=== PATIENT | female | born 1980 | race Two or more races ===

== ENCOUNTER 2016-08-14 22:09 | Inpatient (IN) | payer MEDICAID ==
[~2016-08-14] VITALS: Ht 154.9 cm; Wt 74.3 kg
[2016-08-14 22:43] VITALS: BP 108/71; PULSE 80; RESP 18
[2016-08-14] MEDS ORDERED: PRENAT PO (22:47)
--- NOTE | 2016-08-14 23:27 | TRIAGE ---
OB Triage Datetime Report Generated by CPN: 08/14/2016 23:26 Datetime: 08/14/2016 23:12 Vaginal Exam Dilatation (cms): 0.0 Effacement (%): 0 Membrane Status: Intact Datetime: 08/14/2016 22:40 EGA: 39.2 Datetime: 08/14/2016 22:35 Heart Rate Monitor Mode: External US Comments: FHT Datetime: 08/14/2016 22:15 Time of Arrival: 08/14/2016 22:06 Arrived By: Ambulatory Arrived From: Home Chief Complaint: w/ c/o ucs. States scheduled for PC/S 08/18 due to breech presentation Movement: Present Contractions: Irregular Time Contractions Began: 08/14/2016 08:00 Rupture of Membranes: Denies Vaginal Bleeding: None Vaginal Discharge: Denies Recent Sexual Intercouse: Denies Abdominal Trauma: Not Applicable Patient Complaints: Contractions Time Provider Notified: 08/14/2016 23:30 Provider Notified: Dr Alvarez Initial Plan: JOSE ALFREDO CRUZ
--- NOTE | 2016-08-14 23:32 | RADRPT ---
PROCEDURE: OB ultrasound CLINICAL INDICATION: . OB ultrasound with evaluation of position TECHNIQUE: Transabdominal obstetrical ultrasound performed for evaluation of position. COMPARISON: None available. FINDINGS: heart rate: 124 Beats per minute. Presentation: Breech, head position is maternal left. Placenta: anterior without evidence of abruption or previa IMPRESSION: Presentation: Breech, head position is maternal left. RPTAT: AADD .Nathanael Hendrix MD, MD Date Time Electronically viewed and signed by .Nathanael Hendrix MD, on 08/14/2016 23:31 .B/
[2016-08-15] MEDS ORDERED: CEFAZOLIN 2 GM/50 ML (PMX) 50 ML IV SCH
[2016-08-15] MEDS: LACTATED RINGER'S 1,000 ML IV SCH ×4 (00:46→23:00)
[2016-08-15] MEDS ORDERED: TERBUTALINE 1 MG/ML INJ SC ONE (01:00)
[2016-08-15 01:56] LABS: ADD SCAN DIFF NO
[2016-08-15 01:57] LABS: ABNORMAL IP MESSAGE 1; BASOPHILS % 0.1 % (0.0-2.0); EOSINOPHILS # 0.1 10^3/ul (0.0-0.5); EOSINOPHILS % 1.3 % (0.0-7.0); HEMATOCRIT 30.5 % (37.0-47.0); HEMOGLOBIN 10.2 g/dl (12.0-16.0); LYMPHOCYTES # 2.6 10^3/ul (0.8-2.9); LYMPHOCYTES % 33.2 % (15.0-51.0); MEAN CORPUSCULAR HEMOGLOBIN 29.3 pg (29.0-33.0); MEAN CORPUSCULAR HGB CONC 33.4 g/dl (32.0-37.0); MEAN CORPUSCULAR VOLUME 87.6 fl (82.0-101.0); MEAN PLATELET VOLUME 13.9 fl (7.4-10.4); MONOCYTE # 0.6 10^3/ul (0.3-0.9); MONOCYTES % 7.5 % (0.0-11.0); NEUTROPHIL # 4.5 10^3/ul (1.6-7.5); NEUTROPHILS % 57.4 % (39.0-77.0); PLATELET COUNT 161 10^3/UL (140-415); RED BLOOD COUNT 3.48 10^6/ul (4.20-5.40); RED CELL DISTRIBUTION WIDTH 13.4 % (11.5-14.5); WHITE BLOOD COUNT 7.8 10^3/ul (4.8-10.8)
[2016-08-15 02:13] LABS: INR 0.91; PROTIME 12.3 Sec (12.2-14.2)
[2016-08-15 02:14] LABS: PARTIAL THROMBOPLASTIN TIME 27.1 Sec (25.0-35.0)
[2016-08-15] MEDS ORDERED: OXYTOCIN 30 UNITS/LR 500 ML IV SCH ×3 (03:30→17:45)
[2016-08-15] MEDS ORDERED: DEXTROSE 5%-LR 1,000 ML IV PRN (10:50)
[2016-08-15] MEDS ORDERED: ONDANSETRON 4 MG INJ IV STA (10:57)
[2016-08-15] MEDS ORDERED: CITRIC ACID/SODIUM CITRATE 15 ML CUP PO PRN ×2 (11:00)
[2016-08-15] MEDS ORDERED: METOCLOPRAMIDE 10 MG INJ IV ONE (11:00)
[2016-08-15] MEDS ORDERED: FENTAnyl 50 MCG/ML VIAL ONE (13:30)
[2016-08-15] MEDS ORDERED: morphine SULFATE/PF (10 MG/10 ML) INJ ONE (13:30)
[2016-08-15] MEDS ORDERED: OXYTOCIN 30 UNITS/LR 500 ML IV ONE (13:53)
[2016-08-15] MEDS ORDERED: NALOXONE (0.4 MG/ML) INJ IV PRN (15:00)
[2016-08-15] MEDS ORDERED: HYDROmorphONE 1 MG/ML SYG IV PRN ×2 (15:00)
[2016-08-15] MEDS ORDERED: KETOROLAC 30 MG INJ IV PRN (15:00)
[2016-08-15] MEDS ORDERED: ONDANSETRON 4 MG INJ IV PRN (15:00)
[2016-08-15] MEDS ORDERED: DIPHENHYDRAMINE 50 MG INJ IV PRN (15:00)
--- NOTE | 2016-08-15 16:58 | HP ---
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 Family history unremarkable Allergies denies allergy to any known medication Social habit denies smoking or drinking Review of system within normal Physical examination 5 feet 1 164 pounds total weight gain during the 26 pounds Temperature 98.1 pulse 60 respiration 20 blood pressure 130/78 Head ears nose and throat Neck supple no thyromegaly Lungs clear to P&A Heart normal sinus rhythm no murmur Abdomen fundal height 37 cm from symphysis pubis anthony breech presentation confirmed with Mahin maneuvers Pelvic examination deferred Extremities no edema no varicosities Impression Intrauterine at 39 weeks and 3 days breech presentation request for bilateral tubal ligation at the time of section. Patient has been counseled regarding the failure rate of tubal ligation increased risk of ectopic future failure to conceive also the complication of the section including but not limited to bowel and bladder injury wound infection and hematoma hemorrhage and she is willing to go ahead with this procedure Estimated Due Date: Aug 19, 2016 : 4 Para: 3 Care: Good Care Ultrasounds: Normal mid trimester US Obstetrical Complications: Gestational Diabetes Medical Complications: None Past Family/Social History * Past Medical, Surgical, Family and Obstetric Histories reviewed from chart. Rubella: immune RPR/VDRL: Negative GBS Status: Negative HBsAG: Negative OB Admission Exam Vital Signs Vital Signs Vital Signs Date Time Temp Pulse Resp B/P Pulse Ox O2 Delivery O2 Flow Rate FiO2 08/14/16 22:43 97.9 80 18 108/71 Room Air Last 72 hourBlood Glucose Bedside Glucose - 72 Hours Test 08/15/16 07:45 08/15/16 12:15 Bedside Glucose 69mg/dL (70-220) L 85mg/dL (70-220) Last 72 hours Lab Results CBC & BMP 08/14/16 00:45 08/15/16 00:45 OB Assessment/Plan Reason for admission: other (Primary due to breech presentation bilateral tubal ligation) Plan: Other (Primary due to breech presentation request for bilateral tubal ligation) MIRNA WARNER MD Aug 15, 2016 16:55
[2016-08-15] MEDS ORDERED: LACTATED RINGER'S 1,000 ML IV SCH (17:45)
[2016-08-15 18:00] VITALS: BP 119/80; PULSE 66; RESP 18
[2016-08-15] MEDS ORDERED: ACETAMINOPHEN/CODEINE #3 TAB PO PRN (18:00)
[2016-08-15] MEDS ORDERED: LANOLIN 7 GM TUBE TOP PRN (18:00)
[2016-08-15] MEDS ORDERED: MISOPROSTOL 200 MCG TAB PR PRN ×3 (18:00)
[2016-08-15] MEDS ORDERED: OXYTOCIN 30 UNITS/LR 500 ML IV PRN ×3 (18:00)
[2016-08-15] MEDS ORDERED: METHYLERGONOVINE 0.2 MG INJ IM PRN ×3 (18:00)
[2016-08-15] MEDS ORDERED: OXYCODONE/ACETAMINOPHEN (5/325) TAB PO PRN ×2 (18:00)
[2016-08-15] MEDS ORDERED: CEFAZOLIN 1 GM/50 ML (PMX) 50 ML IVPB SCH ×2 (18:00→21:30)
[2016-08-15] MEDS ORDERED: CARBOPROST 250 MCG INJ IM PRN ×3 (18:00)
[2016-08-15] MEDS: IBUPROFEN 600 MG TAB PO SCH (18:00)
[2016-08-15 18:30] VITALS: BP 121/85; PULSE 65; RESP 18
--- NOTE | 2016-08-15 18:57 | OPR ---
DATE OF OPERATION: PREOPERATIVE DIAGNOSES: 1. Intrauterine at 39 weeks and 3 days, breech presentation. 2. Request for voluntary sterilization, bilateral tubal ligation. POSTOPERATIVE DIAGNOSES: 1. Intrauterine at 39 weeks and 3 days, breech presentation. 2. Request for voluntary sterilization, bilateral tubal ligation. PROCEDURES: Primary transverse low cervical section, bilateral tubal ligation, Niranjan method. SURGEON: Mirna Simmons MD EMS COORDINATOR: Edwardo Alvarez MD ANESTHESIA: Spinal. ANESTHESIOLOGIST: Alvarez Rios MD FINDINGS: Live baby girl with Apgars 8 and 9. Baby weighed 7 pounds 13 ounces. DETAILS OF THE PROCEDURE: Under satisfactory spinal anesthesia, the patient was prepped and draped and placed in supine position, tilted to the left. Pfannenstiel incision was made, incision carried through to subcutaneous tissue. Bleeders brought under control with electrocautery. Fascia incised to the length of the incision. Rectus muscle divided in midline. Peritoneum exposed, entered through a transverse incision. Exploration of abdomen, gravid uterus at term, normal appearing tubes and ovaries. Bladder flap was developed. Transverse incision was made in the lower segment of the uterus. Amniotic sac ruptured. Live baby girl was delivered from anthony breech presentation. Shoulder delivered without any difficulty. Head delivered with Mauriceau maneuver. Nasal oropharyngeal suction was performed. Cord was clamped after stopped pulsation and baby handed to the team for immediate attention. The patient received 20 units of Pitocin. Placenta delivered intact. Uterine cavity cleaned with wet sponge and drainage established. Uterus closed in 2 layers using Monocryl #1 in continuous fashion. Bilateral tubal ligation performed by identifying the ampullar section of the right fallopian tube which was grasped by a Noel. The top of the loop 3/4 of an inch was excised. The cut end of the tube was cauterized and the specimen submitted to pathology. The same procedure performed for the opposite side. Peritoneal cavity irrigated with warm saline. Sponge, needle and instrument reported to be correct. Abdominal peritoneum closed with 2-0 chromic catgut continuously. Rectus muscle approximated with few interrupted 2- 0 chromic catgut. Fascia closed with #1 PDS in a continuous fashion. Subcutaneous tissue was approximated with interrupted 2-0 chromic catgut. Skin closed with sandy. Estimated blood loss 600 mL. Urine bag contained 200 mL of clear urine. The patient tolerated the procedure well, transferred to recovery room in a good condition. Dictated By: MIRNA DANIELS/АННА Conf#: [id number] DID#: [id number] MTDD
[2016-08-15 19:50] VITALS: BP 119/80; PULSE 71; RESP 20
[2016-08-15] MEDS: SENNA/DOCUSATE NA (8.6MG/50MG) TAB PO SCH (21:00)
[2016-08-16] MEDS: OXYTOCIN 30 UNITS/LR 500 ML IV SCH ×6 (00:09→19:00)
[2016-08-16 04:10] VITALS: BP 121/79; PULSE 69; RESP 20
[2016-08-16] MEDS: IBUPROFEN 600 MG TAB PO SCH ×4 (06:28→18:04)
[2016-08-16] MEDS: LACTATED RINGER'S 1,000 ML IV SCH ×3 (07:00→23:00)
[2016-08-16 08:09] LABS: ADD SCAN DIFF NO
[2016-08-16 08:13] LABS: ABNORMAL IP MESSAGE 1; BASOPHILS % 0.1 % (0.0-2.0); EOSINOPHILS % 0.2 % (0.0-7.0); HEMOGLOBIN 9.5 g/dl (12.0-16.0); LYMPHOCYTES # 1.4 10^3/ul (0.8-2.9); LYMPHOCYTES % 13.3 % (15.0-51.0); MEAN CORPUSCULAR HEMOGLOBIN 28.6 pg (29.0-33.0); MEAN CORPUSCULAR HGB CONC 32.8 g/dl (32.0-37.0); MEAN CORPUSCULAR VOLUME 87.3 fl (82.0-101.0); MEAN PLATELET VOLUME 13.6 fl (7.4-10.4); MONOCYTE # 0.5 10^3/ul (0.3-0.9); MONOCYTES % 4.9 % (0.0-11.0); NEUTROPHIL # 8.7 10^3/ul (1.6-7.5); NEUTROPHILS % 81.1 % (39.0-77.0); PLATELET COUNT 149 10^3/UL (140-415); RED BLOOD COUNT 3.32 10^6/ul (4.20-5.40); RED CELL DISTRIBUTION WIDTH 13.6 % (11.5-14.5); WHITE BLOOD COUNT 10.7 10^3/ul (4.8-10.8)
[2016-08-16] MEDS: SENNA/DOCUSATE NA (8.6MG/50MG) TAB PO SCH ×2 (09:16→21:20)
[2016-08-16 10:17] VITALS: BP 130/68; PULSE 75; RESP 18
--- NOTE | 2016-08-16 11:21 | PN ---
Date/Time of Note Date/Time of Note DATE: 08/16/16 TIME: 11:20 OB Subjective Subjective Subjective Post day 1 Vital signs stable afebrile abdomen soft incision dry lochia moderate uterus firm extremity normal ambulation encouraged diet as tolerated MIRNA WARNER MD Aug 16, 2016 11:21
[2016-08-16 12:36] VITALS: BP 100/63; PULSE 74; RESP 22
[2016-08-16 19:45] VITALS: BP 125/68; PULSE 78; RESP 20
[2016-08-16] MEDS: ACETAMINOPHEN/CODEINE #3 TAB PO PRN (19:55)
[2016-08-17 04:23] VITALS: BP 106/60; PULSE 72; RESP 20
[2016-08-17] MEDS: IBUPROFEN 600 MG TAB PO SCH ×5 (05:16→23:47)
[2016-08-17 08:00] VITALS: BP 114/65; PULSE 74; RESP 18
--- NOTE | 2016-08-17 09:22 | PN ---
Date/Time of Note Date/Time of Note DATE: 08/17/16 TIME: 09:21 OB Subjective Subjective Subjective Post day 2 Afebrile vital signs stable abdomen soft incision dry bowel sounds no bowel movement extremities normal ambulation encouraged . MIRNA WARNER MD Aug 17, 2016 09:22
[2016-08-17] MEDS: SENNA/DOCUSATE NA (8.6MG/50MG) TAB PO SCH ×2 (10:24→20:52)
[2016-08-17 15:58] VITALS: BP 120/75; PULSE 75; RESP 18
[2016-08-17 19:50] VITALS: BP 134/76; PULSE 70; RESP 18
[2016-08-18 03:25] VITALS: BP 101/65; PULSE 64; RESP 18
[2016-08-18] MEDS: IBUPROFEN 600 MG TAB PO SCH ×4 (05:49→23:50)
[2016-08-18 07:40] VITALS: BP 124/74; PULSE 75; RESP 20
[2016-08-18] MEDS ORDERED: DIPHTH/TET/ACEL PERTUSS (ADULT) 0.5 ML VIAL IM* ONE (09:00)
[2016-08-18] MEDS: SENNA/DOCUSATE NA (8.6MG/50MG) TAB PO SCH ×2 (09:34→21:43)
[2016-08-18] MEDS: ACETAMINOPHEN/CODEINE #3 TAB PO PRN ×2 (09:35→15:51)
--- NOTE | 2016-08-18 10:21 | PN ---
Date/Time of Note Date/Time of Note DATE: 08/18/16 TIME: 10:13 OB Subjective Subjective Subjective .Post date 3 Afebrile abdomen soft incision dry bowel sounds. Normal bowel movement extremity negative ambulation encouraged MIRNA WARNER MD Aug 18, 2016 10:21
[2016-08-18 16:58] VITALS: BP 115/73; PULSE 75; RESP 20
[2016-08-18 20:10] VITALS: BP 116/74; PULSE 63; RESP 18
[2016-08-19 04:00] VITALS: BP 128/68; PULSE 60; RESP 18
[2016-08-19] MEDS: IBUPROFEN 600 MG TAB PO SCH ×2 (05:49→12:45)
[2016-08-19 07:20] VITALS: BP 125/76; PULSE 76; RESP 17
[2016-08-19] MEDS: SENNA/DOCUSATE NA (8.6MG/50MG) TAB PO SCH (09:07)
--- NOTE | 2016-08-19 09:46 | PD.PPDC ---
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 Discharge Instruction Condition Patient Condition: Good Diet Diet: Resume Regular Diet Activity/Restrictions Activity: Normal Activity May Shower Restrictions: No Exercising No Lifting No Driving No Sexual Activity Nothing in the Vagina No [place] No Tampons, douche Wound/Drain Care Instructions Wound/Drain Care Instructions: Remove Steri Strips in 1 week Follow-up Follow-up with Physician: 2, Day/Days Provider Information: Post day4 Patient discharged home with instructions, recommended to make appointment with the clinic in 2 days to discontinue sandy Referral Agency Name and Phone Number: [facility] 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
--- NOTE | 2016-08-19 09:48 | DS ---
Date/Time of Note Date/Time of Note DATE: 08/19/16 TIME: 09:46 Discharge Summary Admission/Discharge Info Admit Date/Time Aug 14, 2016 at 23:43 Discharge Date/Time August 18, 2016 at 0 945 Final Diagnosis Post bilateral tubal ligation Procedures Primary for breech presentation bilateral tubal ligation Hx of Present Illness Term breech presentation request for bilateral tubal ligation at the time of section Hospital Course Satisfactory uneventful Home Meds Reported Medications Multivit/Min/Fol Ac/Iron/Pren* ( S*) 1 Tab Tab, 1 TAB PO DAILY, TAB 08/14/16 Follow-up Plan Appointment [facility] in 2 days to discontinue sandy Primary Care Provider Mirian Figueroa Time spent on discharge: < 30 minutes MIRNA WARNER MD Aug 19, 2016 09:48
== END 2016-08-19 16:34 | disposition home or self-care (01) | DRG 765 ==
LOC: OBT 22:09 → L-D 22:10 → OBT 23:42 → L-D 23:43 → PP1 08-15 17:43
PROVIDERS: ADMIT Obstetrics & Gynecology; ATTEND Obstetrics & Gynecology
PROC: 0UL70ZZ Occlusion of Bilateral Fallopian Tubes, Open Approach (ICD-10-PCS; 2016-08-15)
PROC: 10D00Z1 Extraction of Products of Conception, Low, Open Approach (ICD-10-PCS; principal; 2016-08-15 13:00)
DX: O32.1XX0 Maternal care for breech presentation, not applicable or unspecified (principal); O24.92 Unspecified diabetes mellitus in childbirth; Z30.2 Encounter for sterilization; Z3A.39 39 weeks gestation of pregnancy; Z37.0 Single live birth
CPT/HCPCS: 36415; 76815; 82947; 82962; 85025; 85610; 85730; 86592; 86850; 86900; 86901; 87340; 88302; 90715; 94760; 96360; 99464; G0463; J0690; J1885; J2274; J2405; J2590; J2765; J3010; J7120